=== PATIENT | male | born 1960 | race Caucasian/White ===

== ENCOUNTER 2020-04-25 07:34 | Outpatient (CLI) | payer BC, OTHER ==
[2020-04-25 18:03] LABS: #Basophils 0.1 thou/uL (0.0-0.2); #Eosinphils 0.2 thou/uL (0.0-0.7); #Lymphocytes 2.6 thou/uL (1.20-3.40); #Monocytes 1.1 thou/uL (0.11-0.59); #Neutrophils 8.8 thou/uL (1.40-6.50); %Basophils 0.4 % (0.0-1.0); %Eosinophils 1.6 % (0.0-10.0); %Lymphocytes 20.1 % (21.0-51.0); %Monocytes 8.9 % (0.0-10.0); Mean Corpuscular HGB CONC 33.2 g/dL (32.0-36.0); Mean Corpuscular Hemoglobin 29.5 pg (27.0-31.0); Mean Corpuscular Volume 88.8 fL (78.0-98.0); Platelet Count 244 thou/uL (130-400); RBC Distribution Width 12.4 % (11.5-14.5); Red Blood Cell (RBC) Count 5.08 mill/uL (4.70-6.10); White Blood Cell (WBC) Count 12.8 thou/uL (4.8-10.8)
[2020-04-25 18:08] LABS: Clarity Clear (Clear)
[2020-04-25 18:09] LABS: Bacteria/HPF None Seen HPF (None Seen); Bilirubin Negative (Negative); Blood, Urine Negative (Negative); Glucose, Urine (Dipstick) Normal (Negative); Ketone, Urine Negative (Negative); Leukocyte Negative Leu/uL (Negative); Nitrite Negative (Negative); Protein, Urine (Dipstick) Negative (Neg-Trace); RBC/HPF 0-3 HPF (0-3); Squamous Epithelial 0-3 HPF (0-3); Urobilinogen Normal mg/dL (Less than 2); WBC/HPF 0-3 HPF (0-3); pH, Urine 5.5 (5.0-9.0)
[2020-04-25 18:19] LABS: INR-International Normal Ratio 0.9; Prothrombin Time 12.6 sec (12.0-14.7)
[2020-04-25 18:27] LABS: Anion Gap 16 mmol/L (10-20); BUN (Urea Nitrogen) 12 mg/dL (8.4-25.7); Calc. Creatinine Clearance 0 mL/min (70-130); Carbon Dioxide 22 mmol/L (23-31); Chloride 104 mmol/L (98-107); Estimated GFR-MDRD 89; Glucose 120 mg/dL (80-115); Potassium 4.3 mmol/L (3.5-5.1); Sodium 138 mmol/L (136-145)
--- NOTE | 2020-04-28 17:27 | EKG ---
Test Reason : Blood Pressure : / mmHG Vent. Rate : 079 BPM Atrial Rate : 079 BPM P-R Int : 196 ms QRS Dur : 102 ms QT Int : 376 ms P-R-T Axes : 074 030 021 degrees QTc Int : 431 ms Normal sinus rhythm with sinus arrhythmia Normal ECG No previous ECGs available Confirmed by DR. Aubrey MORRIS ([id number]) on 04/28/2020 5:26:37 PM Referred By: IERO Confirmed By:DR. Aubrey MORRIS
== END 2020-04-25 07:35 | disposition home or self-care (01) ==
LOC: LABBT 07:34
PROVIDERS: ATTEND Orthopaedic Surgery
DX: Z01.818 Encounter for other preprocedural examination (principal); M17.12 Unilateral primary osteoarthritis, left knee
CPT/HCPCS: 80048; 81001; 85025; 85610; 87081

== ENCOUNTER 2020-04-25 13:15 | Inpatient (IN) | payer BC ==
[2020-04-28] MEDS ORDERED: Tranexamic Acid 1,000 MG/10 ML VIAL ONE ×2 (07:22→11:49)
[2020-04-28] MEDS ORDERED: Sodium Chloride 0.9% 100 ML ONE ×2 (07:23→11:50)
[2020-04-28] MEDS ORDERED: Midazolam HCl 2 mg/2 ml Vial ONE (07:42)
[2020-04-28] MEDS ORDERED: Fentanyl 100 MCG/2 ML VIAL ONE ×4 (07:42→11:44)
[2020-04-28] MEDS ORDERED: Fentanyl 100 MCG/2 ML VIAL IV PRN (08:12)
[2020-04-28] MEDS ORDERED: HYDROcodone/Acetaminophen 10/325 mg Tablet PO PRN (08:15)
[2020-04-28] MEDS ORDERED: Ropivacaine HCl/PF 250 ML in Premix Bag 1 BAG NERVE BLCK SCH (08:15)
[2020-04-28] MEDS ORDERED: Ondansetron PF 4 MG/2 ML Vial IVP PRN ×2 (08:15→11:24)
[2020-04-28] MEDS ORDERED: Promethazine HCl 25 MG/ML VIAL IM PRN ×3 (08:15→11:24)
[2020-04-28] MEDS ORDERED: Zolpidem Tartrate 5 MG TAB PO PRN ×2 (08:15→11:24)
[2020-04-28] MEDS ORDERED: traMADol HCl 50 MG TAB PO PRN ×2 (08:15)
[2020-04-28] MEDS ORDERED: Bupivacaine PF 0.5% 30 ML VIAL ONE (08:58)
[2020-04-28] MEDS ORDERED: HYDROmorphone 2 MG/ML VIAL SLOW IVP PRN (10:44)
[2020-04-28] MEDS ORDERED: Meperidine HCl/PF 25 MG/ML VIAL SLOW IVP PRN (10:44)
[2020-04-28] MEDS ORDERED: Promethazine HCl 25 MG/ML VIAL SLOW IVP PRN (10:44)
[2020-04-28] MEDS ORDERED: diphenhydrAMINE 25 MG CAP PO PRN (11:24)
[2020-04-28] MEDS ORDERED: Acetaminophen 325 MG TAB PO PRN (11:24)
[2020-04-28] MEDS ORDERED: Tranexamic Acid 1,000 MG in Sodium Chloride 0.9% 100 ML IVPB SCH (11:30)
[2020-04-28] MEDS ORDERED: Dexamethasone 20 MG/5 ML VIAL ONE (12:31)
[2020-04-28] MEDS ORDERED: Lidocaine 1% PF 5 ML VIAL ONE (12:31)
[2020-04-28] MEDS ORDERED: Ondansetron PF 4 MG/2 ML Vial ONE (12:31)
[2020-04-28] MEDS ORDERED: Ketorolac Tromethamine 30 MG/ML VIAL ONE (12:31)
[2020-04-28] MEDS ORDERED: Bupivacaine HCl 0.5%/Epinephrine 1:200,000/PF 30 ml Vial ONE (12:31)
[2020-04-28] MEDS ORDERED: PROPOFOL 200 MG/20 ML VIAL ONE (12:31)
[2020-04-28] MEDS ORDERED: Ropivacaine 0.2% HCl/PF (40 MG/20 ML VIAL) ONE (12:31)
[2020-04-28] MEDS: Ketorolac Tromethamine 30 MG/ML VIAL IVP SCH ×3 (13:00→23:03)
[2020-04-28] MEDS: Sodium Chloride 0.9% 1,000 ML IV SCH ×2 (14:24→20:41)
--- NOTE | 2020-04-28 15:51 | OP ---
DATE OF PROCEDURE: 04/28/2020 SURGEON: Bobby Lind MD DISABILITY PROGRAM NAVIGATOR: Francisco Esparza PA-C. The parking assistant surgeon was present throughout the procedure to include the approach for placement of the implant and closure of the knee. PREOPERATIVE DIAGNOSIS: Left knee osteoarthrosis. POSTOPERATIVE DIAGNOSIS: Left knee osteoarthrosis. PROCEDURE PERFORMED: Left total knee replacement using Sharon pinless navigation. ANESTHESIA: He did have a general anesthetic as well as a preoperative block. BLOOD LOSS: Minimal. COMPLICATIONS: None. DISPOSITION: He went to recovery room in stable condition. IMPLANTS: Our implants to the left knee include a Sharon Triathlon total knee system. The femur was a size 5 cruciate retaining femur. We used a size 5 primary tibial baseplate, a 5 x 9 mm CS X3 tibial insert and a 29 x 9 asymmetric X3 patella. INDICATIONS: This is a 60-year-old male who has failed nonoperative treatment at this time wished to have his knee replaced. PROCEDURE IN DETAIL: After all appropriate consent forms were explained and signed, the patient was taken back to the operating room and at this time was given general anesthetic. Once the level of anesthesia was appropriate, a well-padded tourniquet was placed on the left leg, and the leg was then prepped and draped in standard surgical fashion. The limb was exsanguinated and tourniquet taken up to 300 mmHg. Midline incision was made with a 10 blade down through the skin and subcutaneous tissue. Bovie electrocautery was used to coagulate any brisk venous bleeding. A new blade was used to make a medial parapatellar arthrotomy. Small subperiosteal release was performed medially and excess fat pad was removed. The knee was flexed up to gain access to the femur. The femur was navigated and distal femoral resection was made. Epicondylar access was used to align our sizing jig and this was pinned in place. We sized our femur to be a size 5. 4:1 cutting block was applied and pinned. Anterior and posterior chamfer cuts were then made. We navigated out our proximal tibia and made our proximal tibial resection. Spreaders were used to remove any posterior osteophytes off the back of the femur as well as remaining meniscal tissue. A long alignment kai was then used to achieve correct rotation of our tibial baseplate and a size 5 was chosen. This was pinned in place. We trialed the polyethylene and a 5 x 9 mm CS X3 polyethylene gave us full extension and good stability throughout range of motion. Two towel clips and a saw were used to cut our patella. Three lug nuts were drilled and a 29 x 9 asymmetric X3 patella was trialed which sat nicely in the trochlear groove. We then drilled our femur and punched our tibia. All components were removed. The knee was thoroughly irrigated and dried. Cement was mixed into the cement gun on the back table. Components were then placed. The knee was held out in full extension until the cement had dried. All excess bone cement was removed. Multiple #2 Vicryl stitches as well as a Quill were used to close our extensor mechanism. 0 Quill followed by a running Monoderm was then used to close the skin. Surgicel glue was then used on the skin. Once this had dried, soft tissue dressing was applied to the limb, tourniquet was let down, and the toes pinked up nicely. The patient was then awakened and taken to the recovery room in stable condition. All counts were correct at the end of the case. The patient did receive preoperative IV antibiotics. The patient was injected with Marcaine for postoperative pain relief. Job ID: [id number] [facility]
[2020-04-28] MEDS: CEFAZOLIN 2 GM in Premix Bag 1 BAG IVPB SCH (17:27)
[2020-04-28] MEDS: Ferrous Gluconate 324 MG TAB PO SCH (20:02)
[2020-04-28] MEDS: Aspirin 81 mg Enteric Coated Tablet PO SCH (20:02)
[2020-04-28] MEDS: Senokot S 8.6-50 MG TAB PO SCH (20:03)
[2020-04-29] MEDS: CEFAZOLIN 2 GM in Premix Bag 1 BAG IVPB SCH (01:49)
[2020-04-29 05:40] LABS: Hemoglobin 13.2 g/dL (14.0-18.0); Mean Corpuscular HGB CONC 34.5 g/dL (32.0-36.0); Mean Corpuscular Hemoglobin 30.4 pg (27.0-31.0); Mean Corpuscular Volume 88.1 fL (78.0-98.0); Mean Platelet Volume 6.6 fL (7.4-10.4); Platelet Count 256 thou/uL (130-400); RBC Distribution Width 12.2 % (11.5-14.5); Red Blood Cell (RBC) Count 4.33 mill/uL (4.70-6.10); White Blood Cell (WBC) Count 13.6 thou/uL (4.8-10.8)
[2020-04-29] MEDS: Ketorolac Tromethamine 30 MG/ML VIAL IVP SCH ×4 (05:49→23:24)
[2020-04-29] MEDS: Ferrous Gluconate 324 MG TAB PO SCH ×2 (09:12→20:32)
[2020-04-29] MEDS: Aspirin 81 mg Enteric Coated Tablet PO SCH ×2 (09:12→20:32)
[2020-04-29] MEDS: Multivitamin W/ Minerals 1 TAB PO SCH (09:12)
[2020-04-29] MEDS: Sodium Chloride 0.9% 1,000 ML IV SCH ×2 (11:06→18:58)
[2020-04-29] MEDS: Senokot S 8.6-50 MG TAB PO SCH ×2 (11:07→20:33)
[2020-04-29] MEDS: HYDROcodone/Acetaminophen 10/325 mg Tablet PO PRN (11:53)
[2020-04-29 12:58] VITALS: BMI 38.0
[2020-04-30] MEDS: Sodium Chloride 0.9% 1,000 ML IV SCH (04:36)
[2020-04-30] MEDS: Ketorolac Tromethamine 30 MG/ML VIAL IVP SCH (05:06)
[2020-04-30 05:46] LABS: Hemoglobin 12.6 g/dL (14.0-18.0); Mean Corpuscular HGB CONC 33.7 g/dL (32.0-36.0); Mean Corpuscular Volume 88.8 fL (78.0-98.0); Mean Platelet Volume 6.8 fL (7.4-10.4); Platelet Count 247 thou/uL (130-400); RBC Distribution Width 12.3 % (11.5-14.5); White Blood Cell (WBC) Count 14.8 thou/uL (4.8-10.8)
[2020-04-30] MEDS: Senokot S 8.6-50 MG TAB PO SCH (09:06)
[2020-04-30] MEDS: Aspirin 81 mg Enteric Coated Tablet PO SCH (09:06)
[2020-04-30] MEDS: Multivitamin W/ Minerals 1 TAB PO SCH (09:07)
[2020-04-30] MEDS: Ferrous Gluconate 324 MG TAB PO SCH (09:07)
[2020-04-30] MEDS: HYDROcodone/Acetaminophen 10/325 mg Tablet PO PRN (09:47)
[2020-04-30 12:13] VITALS: BP 151/82; TEMP 99.2
== END 2020-04-30 13:35 | disposition home or self-care (01) | DRG 470 ==
LOC: SDC 04-28 06:55 → SURG A 04-28 06:57 → SJJU 04-28 13:02 → EDSTATUS 04-28 13:15
PROVIDERS: ADMIT Orthopaedic Surgery; ATTEND Orthopaedic Surgery
PROC: 0SRD0J9 Replacement of Left Knee Joint with Synthetic Substitute, Cemented, Open Approach (ICD-10-PCS; principal; 2020-04-28)
DX: M17.12 Unilateral primary osteoarthritis, left knee (principal); I10 Essential (primary) hypertension; G47.33 Obstructive sleep apnea (adult) (pediatric); E66.9 Obesity, unspecified; Z68.38 Body mass index [BMI] 38.0-38.9, adult; Z79.899 Other long term (current) drug therapy
CPT/HCPCS: 36415; 80048; 81001; 85025; 85027; 85610; 87081; 93005; 93010; C1713; C1776; J0690; J1100; J1885; J2250; J2405; J2704; J2795; J3010; J3370; J3490; J7030; S0020